=== PATIENT | male | born 1955 | race Caucasian/White ===

== ENCOUNTER → 2023-11-28 06:26 | Day surgery (SDC) | payer OTHER, SELFPAY ==
[2023-11-28 07:46] LABS: Glucose - Point of Care 142 mg/dl (70-99)
== END ==
LOC: GI 06:26
PROVIDERS: ATTENDING PHYSICIAN Internal Medicine Gastroenterology
DX: Z12.11 Encounter for screening for malignant neoplasm of colon (principal); K57.30 Diverticulosis of large intestine without perforation or abscess without bleeding; K64.8 Other hemorrhoids; Z86.010 Personal history of colon polyps; Z83.719 Family history of colon polyps, unspecified
CPT/HCPCS: G0105; 82962

== ENCOUNTER → 2024-01-09 12:22 | Outpatient (REF) | payer OTHER, SELFPAY | LOC: RCS 12:22 | PROVIDERS: ATTENDING PHYSICIAN Nuclear Medicine Nuclear Cardiology; FAMILY PHYSICIAN Family Medicine | DX: E11.9 Type 2 diabetes mellitus without complications (principal); E78.2 Mixed hyperlipidemia; I45.10 Unspecified right bundle-branch block | CPT/HCPCS: 93017; 93350 ==

== ENCOUNTER → 2024-02-03 13:30 | Outpatient (REF) | payer OTHER, SELFPAY | LOC: RCS 13:30 | PROVIDERS: ATTENDING PHYSICIAN Nuclear Medicine Nuclear Cardiology; FAMILY PHYSICIAN Family Medicine | DX: E11.9 Type 2 diabetes mellitus without complications (principal); E78.2 Mixed hyperlipidemia; I45.10 Unspecified right bundle-branch block | CPT/HCPCS: 93306 ==

== ENCOUNTER 2024-03-19 13:11 | Emergency (ER) | payer OTHER, SELFPAY ==
[2024-03-19 13:18] VITALS: BP 143/86
--- NOTE | 2024-03-19 13:56 | ED.GENMED ---
History of Present Illness
General
Chief Complaint: Abdominal Pain
Source: patient
Exam Limitations: none
Time Seen by Provider: 03/19/24 13:48
Nursing documentation reviewed up to this point in time: agreed with
History of Present Illness
History of Present Illness:
Patient to ED with complaint of constipation. States he typically passes stool every AM. Reports no stool x 4 days. Called his PCP today and was advised to come to ED. Denies fever/chills, n/v. Reports passing gas. Colonoscopy this year - no
abnormal findings. Brought self to ED. No prior history of same
Past History
Past History
ED Past Medical History: GERD, Hypercholesterolemia and NIDDM
ED Past Surgical History: Appendectomy and Other (hernia repair x 2 as child)
Social History
Tobacco: Non-smoker
Review of Systems
Review of Systems
Allergies reviewed?: Yes
All Other Systems: ROS reviewed and negative except as documented in HPI and ROS
Constitutional: Reports no symptoms
EENT: Reports no symptoms
Respiratory: Reports no symptoms
Cardiac: Reports no symptoms
ABD/GI: Reports constipated
Musculoskeletal: Reports no symptoms
Skin: Reports no symptoms
Neurological: Reports no symptoms
Psychiatric: Reports no symptoms
Phy Exam
General Physical Exam
General Presentation: well appearing and no apparent distress
General age: appears stated age
General Skin: warm and dry
General Habitus: normal
General Mental: alert
Gastrointestinal Exam
Gastrointestinal Exam: soft, no organomegaly, non distended and no cva tenderness
Palpation: generalized: Mild tenderness
Musculoskeletal Exam
Musculoskeletal Exam: full ROM
Skin Exam
Skin Exam: normal color, warm/dry and no rash
Psychiatric Exam
Psychiatric Exam: normal mood/affect
Course
Orders/Labs/Results
Orders:
Orders
03/19/24 13:52
Complete Blood Count/With Diff Urgent
Comprehensive Metabolic Panel Urgent
Lipase Urgent
03/19/24 13:56
Abdomen Xray - 1 View [CR Abdomen - 1 View] Urgent
Comment:
Reason For Exam: constipation
03/19/24 14:00
Urinalysis Reflex To Culture Urgent
Date Specimen was Collected: 03/19/24
Time Specimen was Collected: 13:54
03/19/24 14:50
Magnesium Citrate [Citroma] 300 ml PO ONCE ONE
Abnormal Lab Results
03/19/24
13:52
Absolute Neuts (auto) 7.2 H 10^3/uL
(1.4-6.5)
Absolute Monos (auto) 1.3 H 10^3/uL
(0.1-0.6)
Lymphocytes % 15.6 L %
(20.5-51.1)
Monocytes % 12.5 H %
(1.7-9.3)
Sodium 134 L mmol/L
(135-145)
Glucose 139 H mg/dl
(70-99)
03/19/24 13:52
03/19/24 13:52
Vital Signs
Initial and Last Documented VS:
Initial Vital Signs
Temp Pulse Resp BP Pulse Ox
98.1 F 101 22 143/86 97
03/19/24 13:18 03/19/24 13:18 03/19/24 13:18 03/19/24 13:18 03/19/24 13:18
Last Documented Vital Signs
Temp Pulse Resp BP Pulse Ox
98.1 F 86 24 135/75 94
03/19/24 13:18 03/19/24 14:15 03/19/24 14:15 03/19/24 14:00 03/19/24 14:15
*Radiology
Radiology exam reviewed: radiology read reviewed
*Critical Care Note
Total Time (30-74mins, 75-104mins- exclusive of procedures): Not Applicable
ED Attending Note
-
Portions of this chart may have been created with voice recognition software.� Occasional wrong word or��sound alike� substitutions may have occurred due to the inherent limitations of voice recognition software.
Discharge Plan
Departure
Patient Disposition: Home (Routine Discharge)
Date of Disposition: 03/19/24
Time of Disposition: 14:50
Patient with high blood pressure during this ER visit?: No
Condition: Good
Covid-19: Not Applicable
Discharge Problem:
Constipation
Instructions: Constipation, Adult (DC)
Prescriptions:
New
magnesium citrate Solution
300 ml PO DAILY PRN (Reason: Constipation) Qty: 296 0RF
No Action
metformin 1,000 MG tablet
1,000 mg PO BID
Referrals:
Ronaldo Palomo MD [Family Provider] - Follow up in 2-3 days
Interventions
Interventions:
*Risk Screen - Suicide Last Done: 03/19/24 13:18
*General Assessment Last Done: 03/19/24 13:18
*Neglect/Abuse Screening Last Done: 03/19/24 13:18
ED- Fall Risk Assessment Last Done: 03/19/24 14:49
*ED COVID-19 Vaccine History Last Done: 03/19/24 14:49
LW-Lhjckl-Fafijdluvd Assessment Last Done: 03/19/24 13:36
Discharge Date and Time
Print Language: LITHUANIAN
[2024-03-19 14:00] VITALS: BP 135/75
[2024-03-19 14:17] LABS: % Basophils 0.3 % (0-2); % Eosinophils 0.7 % (0-6); % Immature Granulocytes 0.4 % (0-0.5); % Lymphocytes 15.6 % (20.5-51.1); % Monocytes 12.5 % (1.7-9.3); % Neutrophils 70.5 % (42.2-75.2); Absolute Eosinophils 0.1 10^3/uL (0-0.7); Absolute Lymphocytes 1.6 10^3/uL (1.2-3.4); Absolute Monocytes 1.3 10^3/uL (0.1-0.6); Absolute Neutrophils 7.2 10^3/uL (1.4-6.5); Hematocrit 41.8 % (39.0-52.0); Hemoglobin 14.3 g/dL (13.0-18.0); Mean Corp Hgb Conc. 34.2 g/dL (33.0-37.0); Mean Corpuscular Hgb 29.1 pg (27.0-31.0); Mean Platelet Volume 9.6 fL (7.4-10.4); Nucleated Red Blood Cells % 0 % (-); Platelet Count 225 10^3/uL (130-400); Red Blood Cell Count 4.92 10^6/uL (4.70-6.10); White Blood Cell Count 10.2 10^3/uL (4.8-10.8)
[2024-03-19 14:32] LABS: ALT (SGPT) 12 U/L (0-50); AST (SGOT) 17 U/L (17-59); Albumin 4.1 g/dl (3.5-5.0); Alkaline Phosphatase 61 U/L (38-126); Blood Urea Nitrogen 16 mg/dl (9-20); Calcium 9.5 mg/dl (8.4-10.2); Carbon Dioxide 26 mmol/L (22-30); Chloride 101 mmol/L (98-107); Glucose 139 mg/dl (70-99); Lipase 71 U/L (23-300); Potassium 4.1 mmol/L (3.5-5.1); Sodium 134 mmol/L (135-145); Total Bilirubin 0.9 mg/dl (0.2-1.3); Total Protein 6.7 g/dl (6.3-8.2); eGFR > 60.00
[2024-03-19 14:49] LABS: Urine Albumin Negative (Neg - Trace); Urine Bilirubin Negative (Negative); Urine Character Clear (Clear); Urine Color Yellow; Urine Glucose Negative (Negative); Urine Ketone 1+ (Negative); Urine Leukocyte Trace (Negative); Urine Nitrite Negative (Negative); Urine Occult Blood Trace (Negative); Urine Urobilinogen Negative (Neg - 1+)
[2024-03-19 15:02] LABS: Urine Mucus Moderate
[2024-03-19 15:03] LABS: Urine Bacteria Few (Negative); Urine Red Blood Cell 0-2 /HPF (0-2); Urine White Cell 0-2 /HPF (0-5)
[2024-03-19] MEDS: CITROMA 300 ML PO (15:03)
== END 2024-03-19 15:24 | disposition home or self-care (01) ==
LOC: EMR 13:11
PROVIDERS: Nurse Practitioner; EMERGENCY PHYSICIAN Emergency Medicine; FAMILY PHYSICIAN Family Medicine
DX: K59.00 Constipation, unspecified (principal)
CPT/HCPCS: 99284; 74018; 80053; 81003; 81015; 83690; 85025

== ENCOUNTER → 2024-10-13 13:01 | Outpatient (REF) | payer OTHER, SELFPAY ==
[2024-10-13 14:47] LABS: % Basophils 0.7 % (0-2); % Eosinophils 2.8 % (0-6); % Immature Granulocytes 0.3 % (0-0.5); % Lymphocytes 36.4 % (20.5-51.1); % Monocytes 11.3 % (1.7-9.3); % Neutrophils 48.5 % (42.2-75.2); Absolute Basophils 0.1 10^3/uL (0-0.2); Absolute Eosinophils 0.2 10^3/uL (0-0.7); Absolute Lymphocytes 2.4 10^3/uL (1.2-3.4); Absolute Monocytes 0.8 10^3/uL (0.1-0.6); Absolute Neutrophils 3.3 10^3/uL (1.4-6.5); Hematocrit 40.5 % (39.0-52.0); Hemoglobin 13.3 g/dL (13.0-18.0); Mean Corp Hgb Conc. 32.8 g/dL (33.0-37.0); Mean Corpuscular Hgb 28.8 pg (27.0-31.0); Mean Corpuscular Volume 87.7 fL (80.0-94.0); Mean Platelet Volume 9.1 fL (7.4-10.4); Nucleated Red Blood Cells % 0 % (-); Platelet Count 241 10^3/uL (130-400); Red Blood Cell Count 4.62 10^6/uL (4.70-6.10); White Blood Cell Count 6.7 10^3/uL (4.8-10.8)
[2024-10-13 16:26] LABS: Blood Urea Nitrogen 18 mg/dl (9-20); Calcium 8.7 mg/dl (8.4-10.2); Carbon Dioxide 30 mmol/L (22-30); Chloride 99 mmol/L (98-107); Glucose 166 mg/dl (70-99); Potassium 4.5 mmol/L (3.5-5.1); Sodium 137 mmol/L (135-145); eGFR > 60.00
== END ==
LOC: RCS 13:01
PROVIDERS: ATTENDING PHYSICIAN Orthopaedic Surgery Hand Surgery; FAMILY PHYSICIAN Family Medicine
DX: Z01.818 Encounter for other preprocedural examination (principal)
CPT/HCPCS: 36415; 80048; 85025; 93005

== ENCOUNTER → 2024-10-26 09:20 | Outpatient (REF) | payer OTHER, SELFPAY ==
--- NOTE | 2024-10-15 10:11 | PN.DIAED02 ---
Referral
DSME Class Series Code: [id number]
Referred For: Diabetes Self-Management Training, Medical Nutrition Therapy, Self-Blood Glucose Monitoring, Long-Term Complication Instruction, Accute Complication Instruction, Continuous Glucose Monitoring, Medication management, Insulin
Instruction, Care Coordination, Disease Management
PHI Release Authorization Form Signed: Yes
Patient Problems:
Current Active Problems
Problem Status Onset
Type 2 diabetes mellitus with other circulatory complications
Demographic
(1) Type 2 diabetes mellitus with other circulatory complications
Status: Chronic Code(s): E11.59 - Type 2 diabetes mellitus with other circulatory complications
Patient's primary language-: Persian
Education: High school/GED
Occupation: Retired
- Social
Primary Support Person: Self
Primary Care Takers: Self
Living Arrangements: Self & spouse, Family
- Learning Methods
Preferred Method: Hands-on demonstration
Barriers to Learning: None
Glycemic Control
- Blood Glucose Monitoring Assessment
Blood glucose monitoring at home: Yes
Monitor Brands: Other (CGM: DEXCOM G7)
Frequency: >4x per day
Time: fasting, before breakfast, after breakfast, before lunch, after lunch, before dinner, after dinner, 12 AM, 3 AM
- Hyperglycemia Assessment
Experiences Hyperglycemia: No
- Hypoglycemia Assessment
Patient carries glucose source: Yes
Patient experiences hypoglycemia: Yes
Frequency: 1-3x per week
Treatment: juice
- Hemoglobin A1c
Date: 07/22/24 (FBG 132 05/13/2024)
A1C Percentage (%): 7.2
Medical History of Diabetes
Previous Diabetes Education: No
Previous visit with Dietitian: No
Complications/Comorbidity/Specialist: Diabetic Neuropathy, Gastrointestinal disease (Omeprazole 20 mg QD), Hypertension (Furosemide 20 mg QD, Lisinopril 2.5 mg QD), Hyperlipidemia (Repatha), Metabolic (DM: Metformin HCL 1000 mg QD, Lantus 8 u QD,
Novolog 12 units TID), Other / symptoms (Migraine: Acetaminophen-Codeine 300-30 mg 1-2 tablets PRN q6h, Xsmeqntzis-AWCY-fmvnghma 50-300-40 mg q q4h PRN)
Measures
- Anthropometrics
Height: 5 ft 11 in
Actual Weight: 197 lb 6.4 oz
- Blood Pressure / Pulse
Blood pressure: 158/81
Pulse: 79
- Diabetes Management
Medical Management for Diabetes: Complete physical exam (10/10/2023), Dental exam (06/18/2024), Dilated eye exam (12/05/2023)
Self-Care
- Tobacco Usage
Do you now, or have you ever smoked?: Never smoked
- Alcohol & Drugs Usage
Drinks Alcohol: Yes
- Meals & Dining
Meals & Dining: Patient skips meals: No, Food Intolerance / Allergy: No, Cultural / Hoahaoism Dietary Needs: No
Primary Food Owner Operator: Self
Primary [employer]mo Business Analyst: Self
Dining Out Frequency: 1-3x per week
- Physical Activity
Patient participates in physical Activity: Yes
Activity Types: walking
Duration: 21-30 minutes
Frequency: 6-7x per week
- Self Foot-Care
Foot Problems: None
Performs Self Foot-Exam: No (encouraged to see site monitor)
- Patient-Self Assessment
Diabetes Knowledge: Fair (71% pretest)
Feelings About Diabetes: Acceptance
General Health: Good
Importance of Health: Extremely
Stress Level: Low
Diabetes Interferes With:: Nothing
Barriers to Diabetes Management: Nothing
Depression Survey Score: 0
- Diabetes Identification
Carries Diabetes Identification: Yes
Care Plan
- Education Needs
Patient Education Needs: Diabetes disease process, Chronic complications, Acute complications, Medication, Monitoring, Physical activity, Psychosocial Adjustment, Nutritional management, Goal setting & problem solving
Recommended Diabetes Training Program based on assessment: Outpatient Diabetes Education Program
- Plan of Care
Plan of Care:
Brandon presented for initial assessment for Oct, 2024 DSME course. Has had DM2 for over 20 years, currently managed on Novolog, Lantus, and Metformin. Currently wearing G7 CGM, has backup glucometer at home. Brandon reports hypoglycemia 1-3/week, we
reviewed hypoglycemia protocol and encouraged him to contact PCP for severe low BS treatment. Brandon is having OP carpal tunnel surgery, encouraged him to outreach provider office to discuss pre-surgical medication review.
--- NOTE | 2024-10-20 13:48 | PN.DIAED04 ---
Education Record
- Education Record
Class Attended: Other (INITIAL DSME ASSESSMENT)
DSME Class Series Code: [id number]
Instructor: Nurse Practitioner (ALEX eCsar)
Pre-Program Knowledge: Needs review / Assistance
Pre-Test Score (%): 71
Goals
- Goal 1
Being Active: Exercise 30 minutes-5 times per week (Encouraged Brandon to increase intensity with walking)
Goals To Be Evaluated: Exercise 30 mins-5x/week
- Goal 2
Healthy Eating: Make better food choices
Goals To Be Evaluated: Make better food choices
- Goal 3
Monitoring: Monitor more often (to evaluate patterns of hypoglycemia and hyperglycemia)
Goals To Be Evaluated: Monitor more often
--- NOTE | 2024-10-28 12:51 | PN.DIAED14 ---
This is to notify you that your patient with diabetes, ANNE RIGGS ( 1955), has enrolled in our diabetes self-management classes that are being held at [facility].
These classes will include an introduction to diabetes, diet, medication, exercise and prevention of complications. At the end of our class series, you will receive a report of your patient's participation and progress for your records.
Please contact me at the [facility], , if there is any particular information regarding your patient that might be helpful to me.
Sincerely,
Farhat JOHNSON-MARIA LUISA,[facility]
--- NOTE | 2024-10-28 12:51 | PN.DIAED04 ---
Education Record
- Education Record
Class Attended: Class 1
DSME Class Series Code: [id number]
Instructor: Nurse Practitioner (ALEX Cesar)
Class Curriculum:
Outpatient Diabetes Education Program:
Class 1 (120 minutes)
Describe the diabetes disease process and treatment options
Diabetes management
Develop personal strategies to promote health and behavior change
Integrate psychosocial adjustment for daily living
Monitor blood glucose and other parameters. Interpret and use the results for self-management decision making
Prevent, detect, and treat acute complications
Class Length (mins): 120
Post-Class 1 Test Score (%): 100
== END ==
LOC: DES 09:20
PROVIDERS: ATTENDING PHYSICIAN Family Medicine
DX: E11.59 Type 2 diabetes mellitus with other circulatory complications (principal)
CPT/HCPCS: 99078

== ENCOUNTER → 2024-11-02 08:55 | Outpatient (REF) | payer OTHER, SELFPAY ==
--- NOTE | 2024-11-03 15:37 | PN.DIAED04 ---
Education Record
- Education Record
Class Attended: Class 2
DSME Class Series Code: [id number]
Instructor: Registered Dietitian (Rita Maloney, RD, LDN, CDE)
Class Curriculum:
Outpatient Diabetes Education Program:
Class 2 (120 minutes)
Incorporate nutritional management into lifestyle
Understanding nutritional value
Understanding carbohydrate counting
Class Length (mins): 120
== END ==
LOC: DES 08:55
PROVIDERS: ATTENDING PHYSICIAN Family Medicine
DX: E11.59 Type 2 diabetes mellitus with other circulatory complications (principal)
CPT/HCPCS: 99078

== ENCOUNTER → 2024-11-09 08:12 | Outpatient (REF) | payer OTHER, SELFPAY ==
--- NOTE | 2024-11-10 09:02 | PN.DIAED04 ---
Education Record
- Education Record
Class Attended: Class 3
DSME Class Series Code: [id number]
Instructor: Registered Dietitian (Rita Maloney, RD, LDN, CDE)
Class Curriculum:
Outpatient Diabetes Education Program:
Class 3 (120 minutes)
Incorporate nutritional management into lifestyle
Class Length (mins): 120
Post-Class 2 & 3 Test Score (%): 88
== END ==
LOC: DES 08:12
PROVIDERS: ATTENDING PHYSICIAN Family Medicine
DX: E11.59 Type 2 diabetes mellitus with other circulatory complications (principal)
CPT/HCPCS: 99078

== ENCOUNTER → 2024-11-23 09:30 | Outpatient (REF) | payer OTHER, SELFPAY ==
--- NOTE | 2024-11-25 14:59 | PN.DIAED04 ---
Education Record
- Education Record
Class Attended: Class 5
DSME Class Series Code: [id number]
Instructor: Nurse Practitioner (ALEX Cesar)
Class Curriculum:
Outpatient Diabetes Education Program:
Class 5 (120 minutes)
Prevent, detect, and treat acute complications
Prevent, detect, and treat chronic complications through risk reduction
Develop personal strategies to address psychosocial issues and concerns
Development of diabetes self-management support plan
Letter to physician with DSMS plan attached sent
Class Length (mins): 120
Post-Program Knowledge: Demonstrates competency
Post-Test Score (%): 93
Post-Program Assessment
- Post-Program Assessment
Actual Weight: 197 lb
Blood pressure: 172/89
Post-Program Depression Survey Score: 1
Reviewing Previous Goals?: Yes
Pre-Program Depression Survey Score: 0
- Goals 1 Evaluation
Goals To Be Evaluated: Exercise 30 mins-5x/week
- Goals 2 Evaluation
Goals To Be Evaluated: Make better food choices
- Goals 3 Evaluation
Goals To Be Evaluated: Monitor more often
== END ==
LOC: DES 09:30
PROVIDERS: ATTENDING PHYSICIAN Family Medicine
DX: E11.59 Type 2 diabetes mellitus with other circulatory complications (principal)
CPT/HCPCS: 99078